=== PATIENT | female | born 1980 | race Caucasian/White ===

== ENCOUNTER 2017-03-25 21:21 | Emergency (ER) | payer BC ==
[2017-03-25 21:31] VITALS: BP 134/75; PULSE 98; RESP 20; TEMP 98.3
[2017-03-25] MEDS ORDERED: TOBRAMYCIN 0.3% OPHTH DROPS 5 ML BTL BOTH EYES STA (21:49)
--- NOTE | 2017-03-25 21:53 | ED ---
Eye Problem HPI - General Chief complaint: Eye Problems Stated complaint: Eye Problems Time Seen by Provider: 03/25/17 21:31 Source: patient, RN notes reviewed Mode of arrival: ambulatory Limitations: no limitations - History of Present Illness Initial comments: This is a 36-year-old female who presents to the emergency department with chief complaint of red eyes. Patient states that over the past week she has not been feeling very well. She reports since Monday she has been having a sore throat, ear and sinus congestion and dry cough. Patient states that this morning she woke up and both eyes were red. She attended a today and did a lot of crying. Since then, patient has noticed her eyes have become more red and that "yellow gunk" has been coming out. She notes that her eyes feel dry. She denies any pain or vision changes. She states she has mild itchiness. Patient is not a contact lens wearer. Denies fever, chills, chest pain, shortness of breath, abdominal pain, nausea or vomiting, constipation or diarrhea, dysuria or hematuria, numbness or tingling or headache. - Related Data Home Medications Medication Instructions Recorded Confirmed No Known Home Medications [No 03/25/17 03/25/17 Known Home Medications] Allergies Allergy/AdvReac Type Severity Reaction Status Date / Time No Known Allergies Allergy Verified 03/25/17 21:31 Review of Systems ROS Statement: Those systems with pertinent positive or pertinent negative responses have been documented in the HPI. ROS Other: All systems not noted in ROS Statement are negative. Past Medical History Past Medical History: No Reported History History of Any Multi-Drug Resistant Organisms: None Reported Past Surgical History: Adenoidectomy Past Psychological History: No Psychological Hx Reported Smoking Status: Never smoker Past Alcohol Use History: Occasional Past Drug Use History: None Reported General Exam - General Exam Comments Initial Comments: General: Awake and alert, well-developed; in no apparent distress. HEENT: Head atraumatic, normocephalic. Pupils are equal, round and reactive to light. Extraocular movements intact. Bilateral eyes are erythematous. No scleral icterus noted. Fluorescein stain revealed no ulcers, abrasions or other abnormalities bilaterally. Oropharynx moist without erythema or exudate. Neck: Supple. Normal ROM. Cardiovascular: Regular rate and rhythm. No murmurs, rubs or gallops. Chest symmetrical. Respiratory: Lungs clear to auscultation bilaterally. No wheezes, rales or rhonchi. Normal respiratory effort with no use of accessory muscles. Skin: [place], warm and dry without rashes or lesions. Neurological: Alert and oriented x3. CN II-XII grossly intact. Speech is fluent and answers are appropriate. No focal neuro deficits. Psychiatric: Normal mood and affect. No overt signs of depression or anxiety noted. Limitations: no limitations Course Vital Signs 03/25/17 21:28 Temperature 98.3 F Pulse Rate 98 Respiratory 20 Rate Blood Pressure 134/75 O2 Sat by Pulse 99 Oximetry Medical Decision Making - Medical Decision Making This case was discussed with attending physician, Dr. Miles. Patient will be discharged home and given tobramycin drops with instructions to place 1-2 drops in each eye every 4 hours. Patient understands and is in agreement. All questions were answered. Disposition Clinical Impression: Bilateral conjunctivitis Disposition: HOME SELF-CARE Condition: Good Instructions: Tobramycin (Into the eye) Additional Instructions: Please take medications as prescribed. Please follow up with primary care provider within 1-2 days. Return to emergency department if symptoms should worsen or any concerns arise. Referrals: Nonstaff,Physician [Primary Care Provider] - 1-2 days Time of Disposition: 21:56
== END 2017-03-25 22:02 | disposition home or self-care (01) ==
LOC: EC 21:21
DX: H10.9 Unspecified conjunctivitis (principal)
CPT/HCPCS: 99283